=== PATIENT | female | born 1980 | race Caucasian/White ===

== ENCOUNTER 2017-10-28 17:35 | Emergency (ER) | END 2017-10-28 21:11 | disposition home or self-care (01) ==

== ENCOUNTER 2018-06-02 09:20 | Inpatient (IN) | payer MEDICAID ==
[~2018-06-02] VITALS: Ht 157.5 cm; Wt 99.8 kg
[~2018-06-02 09:20] MED LIST: CEPH-443 PO; OMEP20CA9 PO; OXYTOCIN 30 UNITS/LR 500 ML BAG IV ONE
[2018-06-02] MEDS ORDERED: LACTATED RINGER'S 1,000 ML IV SCH ×3 (09:25→18:33)
[2018-06-02] MEDS ORDERED: AZITHROMYCIN 500MG/NS (PMX) 250 ML IV SCH ×2 (09:30→12:30)
[2018-06-02] MEDS ORDERED: MISOPROSTOL 200 MCG TAB PR PRN ×4 (09:30→19:00)
[2018-06-02] MEDS ORDERED: OXYTOCIN 30 UNITS/LR 500 ML IV PRN ×4 (09:30→19:00)
[2018-06-02] MEDS ORDERED: CARBOPROST 250 MCG INJ IM PRN ×4 (09:30→19:00)
[2018-06-02] MEDS ORDERED: METHYLERGONOVINE 0.2 MG INJ IM PRN ×4 (09:30→19:00)
[2018-06-02] MEDS ORDERED: CEFAZOLIN 2 GM/50 ML (PMX) 50 ML IVPB SCH ×2 (09:30→12:30)
[2018-06-02] MEDS ORDERED: BUTORPHANOL 2 MG INJ IV PRN ×2 (10:30)
[2018-06-02] MEDS ORDERED: LIDOCAINE 1% (MPF) 30 ML INJ INJ PRN (10:30)
[2018-06-02] MEDS ORDERED: OXYTOCIN 30 UNITS/LR 500 ML IV SCH ×3 (10:30→18:33)
[2018-06-02] MEDS ORDERED: IBUPROFEN 600 MG TAB PO PRN (10:30)
[2018-06-02] MEDS ORDERED: AMPICILLIN 2 GM/NS (PMX) 100 ML IV ONE (10:30)
[2018-06-02 11:37] VITALS: Ht 157.5 cm; Wt 99.8 kg
[2018-06-02] MEDS ORDERED: DEXTROSE 5%-LR 1,000 ML IV PRN (12:30)
[2018-06-02] MEDS ORDERED: ONDANSETRON 4 MG INJ ONE (13:31)
[2018-06-02] MEDS ORDERED: CITRIC ACID/NA CITRATE 30 ML CUP ONE (13:31)
--- NOTE | 2018-06-02 13:37 | PREAC ---
Date/Time of Note Date/Time of Note DATE: 06/02/18 TIME: 13:35 Anesthesia Eval and Record Evaluation Time Pre-Procedure Interview DATE: 06/02/18 TIME: 13:35 Age 37 Sex female NPO: 8 hrs Preoperative diagnosis Primary , Macrosomia, possible Transverse position Planned procedure Primary and BTL Past Medical History Past Medical History: Includes : : (3), Para: (2), Gestational age: (37), Gestational diabetes, Other (Macrosomia, possible Transverse position) Surgery & Anesthesia Issues No known issue Meds Anticoagulation: No Beta Simona within 24 hr: No Reason Beta Simona not given: Pt. not on B-Simona Active Scripts Cephalexin* (Keflex*) 500 Mg Capsule, 500 MG PO QID for 7 Days, CAP Prov:JAJA SLAAS PA-C 10/28/17 Omeprazole* (Prilosec*) 20 Mg Capsule.dr, 20 MG PO DAILY, #14 CAP Prov:YANIRA DELACRUZ MD 04/06/15 Current Medications Lactated Ringer's 1,000 ml @ 125 mls/hr Q8H IV ; Start 06/02/18 at 10:21 Butorphanol Tartrate (Stadol) 1 mg Q2H PRN IV PAIN; Start 06/02/18 at 10:30 Butorphanol Tartrate (Stadol) 2 mg Q2H PRN IV .PAIN; Start 06/02/18 at 10:30 Lidocaine (Xylocaine 1% (Mpf)) 30 ml ONCE PRN INJ .EPISIOTOMY; Start 06/02/18 at 10:30 Oxytocin/Lactated Ringer's 500 ml @ 500 mls/hr ONCE POST IV ; Start 06/02/18 at 10:30 Oxytocin/Lactated Ringer's 500 ml @ 125 mls/hr POST IV ; Start 06/02/18 at 10:30 Ibuprofen (Motrin) 600 mg ONCE PRN PO .PAIN 1-5; Start 06/02/18 at 10:30 Oxytocin/Lactated Ringer's 500 ml @ 0 mls/hr ONCE PRN IV .VAGINAL BLEEDING; Start 06/02/18 at 10:30 Methylergonovine Maleate (Methergine) 0.2 mg ONCE PRN IM .VAGINAL BLEEDING; Start 06/02/18 at 10:30 Carboprost Tromethamine (Hemabate) 250 mcg ONCE PRN IM .VAGINAL BLEEDING; Start 06/02/18 at 10:30 Misoprostol (Cytotec) 1,000 mcg ONCE PRN [place] .VAGINAL BLEEDING; Start 06/02/18 at 10:30 Cefazolin Sodium/ Dextrose 50 ml @ 100 mls/hr ONCE IVPB ; Start 06/02/18 at 12:30 Azithromycin 250 ml @ 250 mls/hr ONCE IV ; Start 06/02/18 at 12:30 Oxytocin/Lactated Ringer's 500 ml @ 0 mls/hr ONCE PRN IV .VAGINAL BLEEDING; Start 06/02/18 at 12:30 Methylergonovine Maleate (Methergine) 0.2 mg ONCE PRN IM .VAGINAL BLEEDING; Start 06/02/18 at 12:30 Carboprost Tromethamine (Hemabate) 250 mcg ONCE PRN IM .VAGINAL BLEEDING; Start 06/02/18 at 12:30 Misoprostol (Cytotec) 1,000 mcg ONCE PRN [place] .VAGINAL BLEEDING; Start 06/02/18 at 12:30 Dextrose/Lactated Ringer's 1,000 ml @ 125 mls/hr Q8H PRN IV DECREASED GLUCOSE; Start 06/02/18 at 12:30 Meds reviewed: Yes Allergies Coded Allergies: No Known Drug Allergies (Verified Allergy, Mild, 03/12/15) Allergies Reviewed: Yes Labs/Studies Labs Reviewed: Reviewed by anesthesiologist Result Diagram: 06/02/18 1030 06/02/18 1030 Laboratory Tests 06/02/18 10:30 Blood Bank Test 06/02/18 11:35 Antibody Screen NEGATIVE Blood Type O POSITIVE Rh Immune Globulin Candidate NO test: Positive Studies: ECG (n/a), CXR (n/a) Pre-procedure Exam Airway: Adequate mouth opening, Adequate thyromental dist Mallampati: Mallampati II Teeth: Normal Lung: Normal Heart: Normal ASA Physical Status ASA physical status: 2 Emergency: None Planned Anesthetic Neuraxial: Spinal Planned Pain Management Sub-arachniod narcotics, Parenteral pain med Pre-operative Attestations Prior to commencing anesthesia and surgery, the patient was re-evaluated, there was verification of: *The patient's identity *The results of appropriate recent lab work and preoperative vital signs *The above evaluation not changing prior to induction *Anesthetic plan, risk benefits, alternative and complications discussed with patient/family; questions answered; patient/family understands, accepts and wishes to proceed. NATHANAEL SANDOVAL MD Jun 02, 2018 13:37
[2018-06-02] MEDS ORDERED: KETOROLAC 30 MG INJ ONE (13:43)
[2018-06-02] MEDS ORDERED: morphine SULFATE/PF (10 MG/10 ML) INJ ONE (13:43)
[2018-06-02] MEDS ORDERED: METOCLOPRAMIDE 10 MG INJ ONE (13:43)
[2018-06-02] MEDS ORDERED: OXYTOCIN 10 UNIT INJ ONE (13:43)
[2018-06-02] MEDS ORDERED: DEXAMETHASONE 4 MG/ML 1 ML INJ ONE (13:43)
[2018-06-02] MEDS ORDERED: PHENYLephrine (100 MCG/ML) 10ML SYG ONE (13:43)
--- NOTE | 2018-06-02 13:51 | HP ---
Date/Time of Note Date/Time of Note DATE: 06/02/18 TIME: 13:48 OB - History Hx of Present Chief Complaint: scheduled Estimated Due Date: Jun 09, 2018 : 3 Para: 2 Spontaneous : 0 Therapeutic : 0 Care: Good Care Ultrasounds: Normal mid trimester US Obstetrical Complications: Gestational Diabetes Medical Complications: None Past Family/Social History * Past Medical, Surgical, Family and Obstetric Histories reviewed from chart. GBS Status: Positive OB Admission Exam Physical Exam HEENT: WNL Heart: Rhythm Normal Lungs: Clear, Equal Abdomen: WNL Extremities: Normal Reflexes: Normal Heart Rate: 120's Accelerations: Accelerations Present Decelerations: No Decelerations Varibility: Moderate Last 72 hours Lab Results CBC & BMP 06/02/18 10:30 OB Assessment/Plan Reason for admission: section Other Assessment: Suspected macrosomia Voluntary sterilization Plan: Section, Other Other plan: Bilateral tubal ligation HEVER BENÍTEZ MD Jun 02, 2018 13:51
[2018-06-02] MEDS ORDERED: ONDANSETRON 4 MG INJ IV ONE (14:00)
[2018-06-02] MEDS ORDERED: CITRIC ACID/NA CITRATE 30 ML CUP PO ONE (14:00)
[2018-06-02] MEDS ORDERED: AMPICILLIN 1 GM/NS (PMX) 50 ML IV SCH (14:30)
[2018-06-02] MEDS ORDERED: DIPHENHYDRAMINE 50 MG INJ IV PRN (15:00)
[2018-06-02] MEDS ORDERED: ACETAMINOPHEN 500 MG TAB PO PRN (15:00)
[2018-06-02] MEDS ORDERED: morphine 2 MG INJ IV PRN ×2 (15:00)
[2018-06-02] MEDS ORDERED: HYDROCODONE/APAP (5/325) TAB PO PRN (15:00)
[2018-06-02] MEDS ORDERED: HYDROmorphONE 0.5 MG/0.5 ML SYG IV PRN ×2 (15:00)
[2018-06-02] MEDS ORDERED: NALOXONE (0.4 MG/ML) INJ IV PRN (15:00)
[2018-06-02] MEDS ORDERED: KETOROLAC 30 MG INJ IV PRN (15:00)
[2018-06-02] MEDS ORDERED: ONDANSETRON 4 MG INJ IV PRN (15:00)
[2018-06-02] MEDS ORDERED: NALBUPHINE HCL (10 MG/1 ML) INJ IV PRN (15:00)
--- NOTE | 2018-06-02 15:30 | OPPN ---
Date/Time of Note Date/Time of Note DATE: 06/02/18 TIME: 15:27 Operative Report Planned Procedure Procedure date Jun 02, 2018 Procedure(s) Primary c/s and BTL Performed by Hever Benítez MD Psychologist Engineering: CHIRAG DILL MD 2nd Psychologist Engineering none Anesthesiologist: NATHANAEL SANDOVAL MD Pre-procedure diagnosis Term , GDM, suspected macrosomia, voluntary sterilization [id number] Anesthesia Type: [id number] spinal Post-Procedure Post-procedure diagnosis Same Findings Live Baby [], Apgars [] and [], weight [], position [], [] presentation []cord. Estimated Blood Loss: other (700 ml) Specimen(s) Placenta and Fallopian tubes Grafts/Implant(s) none Complication(s) none HEVER BENÍTEZ MD Jun 02, 2018 15:30
--- NOTE | 2018-06-02 15:31 | PAC ---
Date/Time of Note Date/Time of Note DATE: 06/02/18 TIME: 15:31 Post-Anesthesia Notes Post-Anesthesia Note Last documented vital signs T: 98.0 Activity: WNL Respiratory function: WNL Cardiovascular function: WNL Mental status: Baseline Pain reasonably controlled: Yes Hydration appropriate: Yes Nausea/Vomiting absent: Yes NATHANAEL SANDOVAL MD Jun 02, 2018 15:31
--- NOTE | 2018-06-02 16:35 | OPR ---
DATE OF OPERATION: 06/02/2018 PREOPERATIVE DIAGNOSES: 1. Term . 2. Gestational diabetes. 3. Suspected macrosomia. 4. Voluntary sterilization. POSTOPERATIVE DIAGNOSES: 1. Term . 2. Gestational diabetes. 3. Suspected macrosomia. 4. Voluntary sterilization. OPERATIONS: Primary low transverse section and bilateral tubal ligation. SURGEON: Hever Mayberry MD BULB PLANTER: Cristina Tubbs MD ANESTHESIA: Spinal. ANESTHESIOLOGIST: Clayton Ramírez MD DESCRIPTION OF PROCEDURE: The patient was taken to the operating room and placed on the operating ta ble. After successful spinal anesthesia was given, the patient was placed in supine position. The a lori was prepared and draped in the usual sterile fashion. Spinal anesthesia was tested and was satis factory. Using a scalpel, Pfannenstiel incision was made about 2 fingerbreadths above the symphysis pubis. The incision was carried to fascia. The fascia was incised and extended bilaterally with May o scissors. Two Kochers were used to separate the fascia from the muscle. The muscle was seen in th e midline down to peritoneum. The peritoneum was bluntly entered. Using a scalpel, a small transver se incision was made in the lower segment of uterus. Upon entering the uterine cavity, bandage sciss ors were inserted to extend the incision bilaterally, curved up. Baby was delivered from cephalic pr esentation. After suctioning clear amniotic fluid, the baby was handed off to the team in a ttendance. Apgars were 8 and 9. The placenta was delivered without difficulty. The uterus was clos ed with #1 Monocryl continuous locked. After assuring hemostasis, both ovaries and tubes were inspec vy, all looked normal. The right fallopian tube was grasped with a Gravity clamp. Using 0 plain ceja ture ligature, a 5 cm segment of the right fallopian tube was doubly ligated. Using Metzenbaum sciss ors, a portion of the right fallopian tube above the ligated area was excised and sent to pathology. Same procedure was repeated on the fallopian tube after assuring hemostasis. The peritoneum was almita sed with 2-0 Vicryl continuous. The fascia was closed with #1 Vicryl continuous in 2 segments. Subc utaneous tissue was reapproximated with 2-0 plain. The skin was closed with lucas. Estimated bloo d loss was 700 mL. All counts were correct. Dictated By: HEVER LONG/SOLO Conf#: [id number] DID#: [id number]
[2018-06-02 18:15] VITALS: BP 115/59; PULSE 66; RESP 18
[2018-06-02 18:30] VITALS: BP 122/68; PULSE 76; RESP 18
[2018-06-02] MEDS ORDERED: LANOLIN HPA 1 PKT TOP PRN (19:00)
[2018-06-02] MEDS ORDERED: OXYCODONE/ACETAMINOPHEN (5/325) TAB PO PRN ×2 (19:00)
[2018-06-02 20:00] VITALS: BP 113/53; PULSE 50; RESP 19
[2018-06-02] MEDS: SENNA/DOCUSATE NA (8.6MG/50MG) TAB PO SCH (21:00)
[2018-06-03 00:45] VITALS: BP 115/58; PULSE 62; RESP 19
[2018-06-03 04:00] VITALS: BP 94/53; PULSE 63; RESP 19
[2018-06-03 08:30] VITALS: BP 91/50; PULSE 55; RESP 18
[2018-06-03] MEDS: SENNA/DOCUSATE NA (8.6MG/50MG) TAB PO SCH ×2 (09:00→21:02)
--- NOTE | 2018-06-03 09:55 | QN ---
Documentation Comment No complaint Afebrile VSS Abdomen soft ND POD #1 Stable Ambulate Advance diet. HEVER BENÍTEZ MD Jun 03, 2018 09:55
[2018-06-03] MEDS: ACCU-CHEK XX SCH ×3 (11:42→21:00)
[2018-06-03 11:45] VITALS: BP 93/52; PULSE 55; RESP 18
[2018-06-03 15:45] VITALS: BP 93/57; PULSE 65; RESP 18
[2018-06-03 20:00] VITALS: BP 103/66; PULSE 78; RESP 18
[2018-06-03] MEDS: IBUPROFEN 800 MG TAB PO SCH (22:36)
[2018-06-04 04:20] VITALS: BP 130/55; PULSE 62; RESP 18
[2018-06-04] MEDS: IBUPROFEN 800 MG TAB PO SCH ×3 (05:41→21:48)
[2018-06-04 08:00] VITALS: BP 106/59; PULSE 65; RESP 18
[2018-06-04] MEDS: ACCU-CHEK XX SCH ×4 (08:14→20:58)
[2018-06-04] MEDS: SENNA/DOCUSATE NA (8.6MG/50MG) TAB PO SCH ×2 (09:13→20:58)
[2018-06-04 15:47] VITALS: BP 98/51; PULSE 65; RESP 18
--- NOTE | 2018-06-04 18:59 | QN ---
Documentation Comment No complaint afebrile VSS Abdomen soft Stable Continue present care. HEVER BENÍTEZ MD Jun 04, 2018 18:59
[2018-06-04 20:05] VITALS: BP 114/61; PULSE 83; RESP 19
[2018-06-05 03:40] VITALS: BP 102/59; PULSE 58; RESP 20
[2018-06-05] MEDS: IBUPROFEN 800 MG TAB PO SCH ×2 (05:29→14:25)
[2018-06-05 08:00] VITALS: BP 112/58; PULSE 66; RESP 18
[2018-06-05] MEDS: ACCU-CHEK XX SCH ×2 (08:00→12:00)
[2018-06-05] MEDS ORDERED: DIPHTH/TET/ACEL PERTUSS (ADULT) 0.5 ML VIAL IM* ONE (09:00)
[2018-06-05] MEDS: SENNA/DOCUSATE NA (8.6MG/50MG) TAB PO SCH (09:33)
--- NOTE | 2018-06-05 12:50 | DS ---
Date/Time of Note Date/Time of Note DATE: 06/05/18 TIME: 12:49 Obstetrical Discharge Record Final Diagnosis Final Diagnosis: Term delivered Vaginal Delivery Obstetrical Delivery: Bilateral Tubal Ligation Section Section: Primary Primary Indication macrosomia Complications Gestational Diabetes Condition on Discharge Physical Assessment Voiding: Yes Bowel Movement: Yes Breast: Soft, non-tender, Filling Fundus: Firm Abdomen and Incision: incision intact Calf Tenderness: No Patient Condition: Stable HEVER BENÍTEZ MD Jun 05, 2018 12:50
--- NOTE | 2018-06-06 14:51 | DELSUM ---
Delivery Summary A-C Datetime Report Generated by CPN: 06/06/2018 14:51 DELIVERY PERSONNEL Artist'S Manager: Zion Gibbons MATERNAL INFORMATION Delivery Anesthesia: Spinal Medications in Delivery: see anesthesia record Delivery QBL (ml): 700 Placenta Cultured: No Maternal Complications: Other Other Maternal Complications: GESTATIONAL DIABETES ON METFORMIN 500. FIBROID AND OVARIAN CYST LABOR SUMMARY EDC: 06/09/2018 00:00 No. Babies in Womb: 1 Attempted: No Labor Anesthesia: None LABOR INFORMATION Reason for Induction: Not Applicable Oxytocin: N/A Group B Beta Strep: Positive Antibiotics # of Doses: 2 Antibiotics Time of Last Dose: 06/02/2018 14:10 Steroids Given: None Reason Steroids Not Administered: Not Applicable MEMBRANES Membranes Rupture Method: Artificial Rupture of Membranes: 06/02/2018 14:32 Length of Rupture (hr): 0.02 Amniotic Fluid Color: Clear Amniotic Fluid Amount: Large Amniotic Fluid Odor: None STAGES OF LABOR Stage 3 hr: 0 Stage 3 min: 3 CSECTION DELIVERY Primary Indication: Other Other Primary Indication: MACROSOMIA EFW [id number] CSection Urgency: Non Elective CSection Incidence: Primary Labor: No Labor Elective: N/A CSection Incision: Lower Uterine Transverse Sterilization Procedure: [place] BABY A INFORMATION Delivery Date/Time: 06/02/2018 14:33 Method of Delivery: Born in Route : No : N/A Forceps: N/A Vacuum Extraction: N/A Shoulder Dystocia : N/A SHOULDER DYSTOCIA BABY A Infant Delivery Date/Time: 06/02/2018 14:33 PRESENTATION/POSITION BABY A Presentation: Cephalic Cephalic Presentation: N/A Breech Presentation: N/A PLACENTA INFORMATION BABY A Placenta Delivery Time : 06/02/2018 14:36 Placenta Method of Delivery: Manual Removal Placenta Status: Delivered SCORES BABY A Heart Rate 1 min: >100 bpm Resp Effort 1 min: Good Cry Reflex Irritability 1 min: Cough/Sneeze/Pulls Away Muscle Tone 1 min: Active Motion Color 1 min: Blue/Pale Resuscitation Effort 1 min: Tactile Stimulation SCORE 1 MIN: 8 Heart Rate 5 min: >100 bpm Resp Effort 5 min: Good Cry Reflex Irritability 5 min: Cough/Sneeze/Pulls Away Muscle Tone 5 min: Active Motion Color 5 min: Body [place], Extremit Blue Resuscitation Effort 5 min: Tactile Stimulation SCORE 5 MIN: 9 INFORMATION BABY A Gestational Age at Delivery: 39.0 Gestational Status: Full Term- 39- 40.6 Weeks Infant Outcome : Liveborn Condition : Stable Infant Sex: Female IDENTIFICATION/MEDS BABY A ID Band Number: [id number] ID Band Location: Right Leg; Left Arm Sensor Applied: Yes Sensor Number: [id number] Sensor Location : Cord Clamp Vitamin K Given : Not Given Erythromycin Given: Not Given WEIGHT/LENGTH BABY A Birthweight (gm): 3750 Infant Weight (lb): 8 Weight (oz): 4 Infant Length (in): 20.00 Infant Length (cm): 50.80 CORD INFORMATION BABY A No. Cord Vessels: 3 Nuchal Cord : N/A Cord Blood Taken: Yes Infant Suction: Mouth; Nose ASSESSMENT BABY A Infant Complications: None Physical Findings at Delivery: Within Normal Limits Respirations: Appears Normal [employer] Developer/ALS Called : No Infant Care By: TEOFILO Transferred To: Remains with Mother
== END 2018-06-05 14:40 | disposition home or self-care (01) | DRG 785 ==
LOC: L-D 09:20 → PP1 17:36
PROVIDERS: ADMIT Obstetrics & Gynecology; ATTEND Obstetrics & Gynecology
PROC: 0UL70ZZ Occlusion of Bilateral Fallopian Tubes, Open Approach (ICD-10-PCS; 2018-06-02)
PROC: 10D00Z1 Extraction of Products of Conception, Low, Open Approach (ICD-10-PCS; principal; 2018-06-02 15:00)
DX: O24.429 Gestational diabetes mellitus in childbirth, unspecified control (principal); O36.63X0 Maternal care for excessive fetal growth, third trimester, not applicable or unspecified; Z3A.39 39 weeks gestation of pregnancy; Z37.0 Single live birth; Z30.2 Encounter for sterilization
CPT/HCPCS: 76815; 82947; 82962; 85025; 85610; 85730; 86592; 86850; 86900; 86901; 87340; 88302; 99464; J0456; J0690; J1100; J1885; J2274; J2370; J2405; J2590; J2765; J7120

== ENCOUNTER 2018-08-07 20:56 | Emergency (ER) | payer MEDICAID ==
[~2018-08-07] VITALS: Ht 157.5 cm; Wt 93.8 kg
[2018-08-07 21:01] VITALS: Ht 157.5 cm; Wt 93.8 kg
--- NOTE | 2018-08-07 22:51 | ERD ---
ER Documentation Chief Complaint Chief Complaint Pt reports 2 months ago, had a bump near incision that opened HPI Patient is a 37-year-old female, presents ER for concerns of wound infection to her site. Patient had 2 months ago. Patient states this morning she noticed that her wound opened up. Patient denies any fevers or chills. Patient denies any discharge. Patient states there was mild bleeding earlier today however there is no longer any bleeding. ROS All systems reviewed and are negative except as per history of present illness. Medications Home Meds No Active Prescriptions or Reported Meds Allergies Allergies: Coded Allergies: No Known Drug Allergies (Verified Allergy, Mild, 03/12/15) PMhx/Soc Medical and Surgical Hx: pt denies Medical Hx History of Surgery: Yes ( ) Anesthesia Reaction: No Hx Neurological Disorder: No Hx Respiratory Disorders: No Hx Cardiac Disorders: No Hx Psychiatric Problems: No Hx Miscellaneous Medical Probl: No Hx Alcohol Use: No Hx Substance Use: No Hx Tobacco Use: No Smoking Status: Never smoker FmHx Family History: No diabetes Physical Exam Vitals Vital Signs Date Temp Pulse Resp B/P (MAP) Pulse Ox O2 O2 Flow FiO2 Time Delivery Rate 08/07/18 98.6 82 16 122/62 100 21:01 (82) Physical Exam GENERAL: Well-developed, well-nourished female. Appears in no acute distress. HEAD: Normocephalic, atraumatic. EYES: Pupils are equally reactive bilaterally. EOMs grossly intact. No conjunctival erythema. NECK: Supple. No meningismus. Normal range of motion of the neck. LUNG: Clear to auscultation bilaterally. No rhonchi, wheezing, rales or coarse breath sounds. HEART: Regular rate and rhythm. No murmurs, rubs or gallops. ABDOMEN: incision noted to have undescended since on the left lateral side. No active bleeding or discharge. No surrounding erythema, warmth, induration or fluctuance. Abdomen is soft, nontender, and nondistended. Positive bowel sounds in all four quadrants. No rebound tenderness, no guarding. (-) McBurney's point tenderness. No CVA tenderness. EXTREMITIES: Equal pulses bilaterally. No peripheral clubbing, cyanosis or edema. No unilateral leg swelling. NEUROLOGIC: Alert and oriented. Moving all four extremities without any difficulty. Normal speech. Steady gait. SKIN: Normal color. Warm and dry. No rashes or lesions. Procedures/MDM MEDICAL DECISION MAKING: This is a 37-year-old female presents ER for concerns of wound dehiscence her C- section site which occurred earlier today. Patient had 2 months ago.. Vital signs were reviewed. Patient is afebrile. the wound appears to be healing appropriately with no signs of infection. Slight wound dehiscence noted. Steri-Strips are placed over the site. Post-procedural wound care was discussed with the patient. Low suspicion for seroma, deep space infection, cellulitis. DISCHARGE: At this time, the patient is stable for discharge and outpatient management. Post-procedural wound care was discussed with the patient. I have instructed the patient to promptly return to the ER for any new or worsening symptoms including increasing pain, fever, warmth, redness or swelling. The patient and/or family expressed understanding of and agreement with this plan. All questions were ans wered. Home care instructions were provided. Disclaimer: Inadvertent spelling and grammatical errors are likely due to EHR/dictation software use and do not reflect on the overall quality of patient care. Also, please note that the electronic time recorded on this note does not necessarily reflect the actual time of the patient encounter. Departure Diagnosis: Primary Impression: Wound dehiscence, Condition: Fair Patient Instructions: Wound Care Additional Instructions: Call your primary care doctor TOMORROW for an appointment during the next 1-2 days.See the doctor sooner or return here if your condition worsens before your appointment time. AMOR CARVALHO PA-C Aug 07, 2018 22:51
== END 2018-08-07 23:05 | disposition home or self-care (01) ==
LOC: FTE 20:56
DX: O90.0 Disruption of cesarean delivery wound (principal)
CPT/HCPCS: 99282